=== PATIENT | female | born 1975 | race Caucasian/White ===

== ENCOUNTER 2017-12-14 08:58 | Emergency (ER) | payer BC, OTHER ==
[~2017-12-14] VITALS: Ht 167.6 cm; Wt 95.7 kg
[~2017-12-14 08:58] MED LIST: DARV PO; DOXY100T PO; IBUP-232 PO; IBUP-238 PO; LORT5TAB PO; SULF-154 PO
[2017-12-14 09:02] VITALS: BP 143/86; PULSE 81; RESP 16; TEMP 97.8; O2SAT 100
[2017-12-14] MEDS ORDERED: BENZ100 PO (10:19)
[2017-12-14] MEDS ORDERED: AZIT250T3 PO (10:19)
--- NOTE | 2017-12-14 10:19 | PD ---
HPI Chief Complaint: ENT Complaint Time Seen by Provider: 09:50 Travel History International Travel<30 days: No Contact w/Intl Traveler<30days: No Traveled to known affect area: No History of Present Illness HPI 42-year-old female here with productive cough ongoing for 2 weeks. She is reporting yellow sputum. Symptom severity is moderate. No aggravating or alleviating factors. Denies chest pain or shortness of breath. Subjective fevers. No sick contacts or foreign travel. PFSH Past Medical History Medical History: Denies Significant Hx Diminished Hearing: No Tetanus Vaccination: > 5 Years Influenza Vaccination: No ?: Not LMP: 11/21/17 Past Surgical History Section: Yes (x 2) Cholecystectomy: Yes (2001) Social History Alcohol Use: No Tobacco Use: Yes (1 ppd) Substance Use: No Allergies-Medications (Allergen,Severity, Reaction): Coded Allergies: No Known Allergies (Verified Adverse Reaction, Unknown, 12/14/17) Reported Meds & Prescriptions Reported Meds & Active Scripts Active No Active Prescriptions or Reported Medications Review of Systems Except as stated in HPI: all other systems reviewed are Neg General / Constitutional: Positive: Fever Eyes: No: Visual changes HENT: No: Headaches Cardiovascular: No: Chest Pain or Discomfort Respiratory: Positive: Cough Gastrointestinal: No: Abdominal Pain Genitourinary: No: Dysuria Physical Exam Narrative GENERAL: Alert and well-appearing 42-year-old female SKIN: Warm and dry. HEAD: Normocephalic. EYES: No injection or drainage. NECK: Supple, trachea midline. CARDIOVASCULAR: Regular rate and rhythm RESPIRATORY: Breath sounds equal bilaterally. No accessory muscle use. Rhonchorous cough GASTROINTESTINAL: Abdomen soft, non-tender, nondistended. MUSCULOSKELETAL: No cyanosis, or edema. Data Data Last Documented VS Vital Signs Date Time Temp Pulse Resp B/P (MAP) Pulse Ox O2 Delivery O2 Flow Rate FiO2 12/14/17 09:02 97.8 81 16 143/86 (105) 100 MDM Medical Decision Making Medical Screen Exam Complete: Yes Emergency Medical Condition: Yes Differential Diagnosis Bronchitis, pneumonia, influenza URI Narrative Course 42-year-old female here with productive cough. She is nontoxic appearing. She will be treated with azithromycin and antitussives. Diagnosis Primary Impression: Cough Referrals: Primary Care Physician Additional Instructions: Medication as directed. Scripts Benzonatate (Tessalon Perles) 100 Mg Cap 200 MG PO TID Y for COUGH, #12 CAP 0 Refills Prov: Melva Quiñonez 12/14/17 Azithromycin (Azithromycin) 250 Mg Tab 250 MG PO DIRECTED for Infection, #6 TAB 0 Refills Take 2 tabs (500 mg) on day 1 then 1 tab daily x 4 days. Prov: Melva Quiñonez 12/14/17 Disposition: 01 DISCHARGE HOME Condition: Stable Melva Quiñonez Dec 14, 2017 10:19
== END 2017-12-14 10:26 | disposition home or self-care (01) ==
LOC: PHEFT 08:58
DX: R05 Cough (principal); R50.9 Fever, unspecified; F17.200 Nicotine dependence, unspecified, uncomplicated
CPT/HCPCS: 99283